=== PATIENT | female | born 1995 | race Caucasian/White ===

== ENCOUNTER 2022-05-19 19:02 | Emergency (ER) | payer MEDICAID, SELFPAY ==
[2022-05-19 19:34] VITALS: BP 135/83; PULSE 93; RESP 16; TEMP 36.9; O2SAT 98; BMI 39.1
--- NOTE | 2022-05-19 20:32 | ED.GENADULT ---
HPI - General Adult General Chief complaint: Lower Extremity Swelling Stated complaint: Swollen Ankle Time Seen by Provider: 05/19/22 20:23 History of Present Illness HPI narrative: Pt is a 27 year old woman who over the last few days has noticed mild swelling of the left ankle. Pt has had no injuries. No bruising or echymosis. No calf swelling. Pt is able to bear weight without any difficulty. No other symptoms. Pt states that she is currently not . She has not noted any aggravating or alleviating factors. No fever or chills. No other joint symptoms and she takes no medications. No pain noted. No previous treatment. Related Data Allergies Allergy/AdvReac Type Severity Reaction Status Date / Time amoxicillin Allergy Severe Swelling Verified 05/19/22 19:39 of Lip/Tongue/Throat Review of Systems Status of ROS: Reports: 10 or more systems reviewed and unremarkable except as noted in History and below [facility] Medical History No significant past medical history Surgical History No significant past surgical history Social History Smoking Status: Former smoker Do you use any of these nicotine containing products: None Second hand tobacco smoke exposure: No How often do you have a drink containing alcohol: never How often do you have six or more drinks on one occasion: Never AUDIT-C Alcohol total score: 0 Non-prescribed substance use: denies use Exam Narrative: Exam Narrative: EXAM GENERAL: Patient appears comfortable and well. EYES: No scleral icterus. ENT: Tympanic membranes and oropharynx normal. THYROID: no thyroid nodules or thyromegaly. LYMPH: No supraclavicular or cervical lymphadenopathy. SKIN: Visible skin seen during exam normal or with benign process only. EXT: Minor swelling noted over the lateral ankle without significant ecchymoses. This appears to be centered around the lateral malleolus. No other significant findings. HEART: Regular rate and rhythm with no murmurs, rubs, or gallops. LUNGS: Clear to auscultation bilaterally with no crackles or wheezes. ABD: Soft, non tender, non distended. PSYCH: Good eye contact, speech is not pressured. Const: Vital Signs, click to edit/add: Vital Signs - 24 hr 05/19/22 19:34 Temperature 98.5 F Pulse Rate [Right Pulse Oximeter] 93 Respiratory Rate 16 Blood Pressure [Ri ght Upper Arm] 135/83 Pulse Oximetry 98 Oxygen Delivery Me thod Room Air Course Course Hospital Course: Pt seen and examined Vital Signs Vital signs: Initial Vital Signs Temperature 98.5 F 05/19/22 19:34 Temperature Source Temporal Artery Scan 05/19/22 19:34 Pulse Rate 93 05/19/22 19:34 Pulse Rhythm 05/19/22 19:34 Respiratory Rate 16 05/19/22 19:34 Blood Pressure 135/83 05/19/22 19:34 Blood Pressure Mean 100 05/19/22 19:34 Blood Pressure Position Sitting 05/19/22 19:34 Pulse Oximetry 98 05/19/22 19:34 Oxygen Delivery Method 05/19/22 19:34 Vital Signs Temperature 98.5 F 05/19/22 19:34 Pulse Rate 93 05/19/22 19:34 Respiratory Rate 16 05/19/22 19:34 Blood Pressure 135/83 05/19/22 19:34 Pulse Oximetry 98 05/19/22 19:34 Oxygen Delivery Method 05/19/22 19:34 Temperature 98.5 F 05/19/22 19:34 Pulse Rate 93 05/19/22 19:34 Respiratory Rate 16 05/19/22 19:34 Blood Pressure 135/83 05/19/22 19:34 Pulse Oximetry 98 05/19/22 19:34 Oxygen Delivery Method 05/19/22 19:34 Medical Decision Making [facility] Narrative Medical decision making narrative: Pt presents with very mild swelling of the lateral left ankle without injury. No calf swelling or echymosis. Pt feels well otherwise and can bear weight without pain. Likely this is a mild sprain and will resolve with elevation, rest and anti-inflamitories with outpt follow up. Differential Diagnosis Differential Diagnosis: CHF, Edema, DVT, Ligamentous sprain/strain, cellulitis, fracture Discharge Plan Discharge Clinical Impression: Ankle sprain Patient Disposition: Home, Self-Care Condition: Stable Instructions: Ankle Sprain (ED) Additional Instructions: Elevation Compression Ice Follow up as needed Activity Level: No Restrictions Discharge Diet: Regular Stand Alone Forms: [facility] Info Instructions
== END 2022-05-19 21:04 | disposition home or self-care (01) ==
LOC: ED 20:48
PROVIDERS: Emergency Provider Internal Medicine
DX: S93.402A Sprain of unspecified ligament of left ankle, initial encounter (principal); X58.XXXA Exposure to other specified factors, initial encounter; Y93.9 Activity, unspecified; Y92.9 Unspecified place or not applicable; Y99.9 Unspecified external cause status
CPT/HCPCS: 99282; 99283

== ENCOUNTER 2022-08-11 16:48 | Outpatient (CLI) | payer MEDICAID, SELFPAY ==
--- NOTE | 2022-08-11 17:00 | CRLHL7_ITS ---
For Patients: As a result of the Century Cures Act, medical imaging exams and procedure reports are released immediately into your electronic medical record. You may view this report before your referring provider. If you have questions, please contact your health care provider. INDICATION: Dating, viability, 1st trimester bleeding. LMP 06/24/2022. COMPARISON: None. TECHNIQUE: 2D masters scale and color Doppler images were acquired of the pelvis using a transvaginal approach. FINDINGS: Sonographic images demonstrate a normal size and smooth outer contour of the uterus. The uterus is anteverted in position. The uterus measures 7.5 cm in length by 3.8 cm in AP diameter by 6.0 cm in transverse dimension. The myometrium has uniform echotexture. The endometrial lining measures 11 mm in composite thickness. No intrauterine gestational sac identified. There is a 1.7 x 1.1 x 1.5 cm ovoid hypoechoic lesion within the endometrial canal in the lower uterine segment with no significant internal vascularity. The right ovary measures 3.3 x 2.6 x 2.3 cm and the left ovary measures 3.7 x 1.7 x 1.9 cm. Blood flow is seen within both ovaries. There is a 1.8 cm corpus luteum in the left ovary. No suspicious adnexal mass. No free fluid in the cul-de-sac. IMPRESSION: 1. No intrauterine gestational sac identified. No suspicious adnexal mass. Correlate with serum beta HCG levels. 2. Indeterminate ovoid hypoechoic lesion within the endometrial canal in the lower uterine segment. Differential considerations include abnormal gestational sac, blood clot, endometrial polyp/neoplasm, or submucosal fibroid. Recommend follow-up ultrasound to ensure resolution. Dictated by Pily Briggs MD @ 08/12/2022 9:43:19 AM (Electronically Signed)
== END 2022-08-11 16:49 | disposition home or self-care (01) ==
LOC: US 16:49
PROVIDERS: Visit Provider Advanced Practice Midwife
DX: O20.9 Hemorrhage in early pregnancy, unspecified (principal)
CPT/HCPCS: 76817

== ENCOUNTER 2022-08-12 10:42 | Outpatient (CLI) | payer MEDICAID, SELFPAY ==
[2022-08-12 17:43] LABS: HCG Quantitative* 232.57 mIU/mL
== END 2022-08-12 10:43 | disposition home or self-care (01) ==
LOC: NFLDREF 10:45
PROVIDERS: Visit Provider Advanced Practice Midwife
DX: O20.9 Hemorrhage in early pregnancy, unspecified (principal)
CPT/HCPCS: 84702

== ENCOUNTER 2022-08-14 14:54 | Outpatient (CLI) | payer MEDICAID, SELFPAY ==
[2022-08-14 17:41] LABS: HCG Quantitative* 57.18 mIU/mL
== END 2022-08-14 14:55 | disposition home or self-care (01) ==
PROVIDERS: Advanced Practice Midwife; Visit Provider Advanced Practice Midwife
DX: O20.9 Hemorrhage in early pregnancy, unspecified (principal)
CPT/HCPCS: 84702

== ENCOUNTER 2024-01-04 17:11 | Outpatient (CLI) | payer MEDICAID, SELFPAY | END 2024-01-04 17:12 | disposition home or self-care (01) | PROVIDERS: Visit Provider Advanced Practice Midwife | DX: Z34.91 Encounter for supervision of normal pregnancy, unspecified, first trimester (principal); Z3A.08 8 weeks gestation of pregnancy | CPT/HCPCS: 76817; 82565; 82570; 84156; 84450; 84460; 86592; 86703; 86704; 86706; 86762; 86787; 86803; 86850; 86900; 86901; 87086; 87340 ==

== ENCOUNTER 2024-02-02 10:53 | Outpatient (CLI) | payer MEDICAID, SELFPAY | END 2024-02-02 10:54 | disposition home or self-care (01) | PROVIDERS: Visit Provider Advanced Practice Midwife | DX: Z34.91 Encounter for supervision of normal pregnancy, unspecified, first trimester (principal); Z3A.12 12 weeks gestation of pregnancy | CPT/HCPCS: 84450; 84460; 87491; 87591 ==

== ENCOUNTER 2024-03-01 14:27 | Outpatient (CLI) | payer MEDICAID, SELFPAY | END 2024-03-01 14:28 | disposition home or self-care (01) | PROVIDERS: Visit Provider Midwife | DX: Z34.92 Encounter for supervision of normal pregnancy, unspecified, second trimester (principal); Z3A.17 17 weeks gestation of pregnancy | CPT/HCPCS: 81511 ==

== ENCOUNTER 2024-03-29 09:12 | Outpatient (CLI) | payer MEDICAID, SELFPAY ==
--- NOTE | 2024-03-29 09:15 | CRLHL7_ITS ---
For Patients: As a result of the Century Cures Act, medical imaging exams and procedure reports are released immediately into your electronic medical record. You may view this report before your referring provider. If you have questions, please contact your health care provider. INDICATION: Evaluate anatomy. COMPARISON: 01/04/2024 TECHNIQUE: Real time masters scale imaging of the fetus was performed as well as color Doppler analysis of the umbilical vessels. FINDINGS: Sonographic imaging demonstrates a single living intrauterine gestation. Fetus demonstrates a regular cardiac rate of 141 beats per minute. Fetus has a vertex position. The placenta lies anteriorly without evidence of placenta previa. Amniotic fluid volume appears normal. Single deepest vertical pocket: 4.2 cm. The cervix is closed and measures 4.0 cm in length. The composite ultrasound gestational age is calculated at 20 weeks 6 days with an estimated sonographic due date of 08/10/2024. The estimated weight is 397 grams which lies at the 56th %. The following biometric measurements were obtained: Biparietal diameter: 4.8 cm/20 weeks 4 day 39th% Head circumference: 18.1 cm/20 weeks 4 days 27th% Abdominal circumference: 15.8 cm/20 weeks 6 days 45th% Femur length: 3.6 cm/21 weeks 3 days 61st% The HC/AC ratio measures: 1.15 range (1.06-1.25) On anatomic survey, there is a normal appearance of the cerebral ventricles, cavum septi pellucidi, cisterna magna and cerebellum. The nose and lips appear normal. Incomplete visualization of the profile. The cervical, thoracic and lumbar spine are well visualized and appear normal. There is a normal four-chamber heart view and the left and right ventricular outflow tracts appear normal. Incomplete visualization of the three-vessel view and three-vessel trachea view. The diaphragm and stomach appear normal. The kidneys and bladder also appear normal. There is a normal three-vessel cord and cord insertion site. The four extremities appear normal. IMPRESSION: Concordance of clinical and sonographic dating. Incomplete visualization of the profile, three-vessel view and three-vessel trachea view. Remainder of the anatomic survey normal. Short-term follow-up recommended. Dictated by Damion Gu MD @ 03/29/2024 12:27:30 PM (Electronically Signed)
== END 2024-03-29 09:13 | disposition home or self-care (01) ==
LOC: US 09:12
PROVIDERS: Visit Provider Midwife
DX: Z34.92 Encounter for supervision of normal pregnancy, unspecified, second trimester (principal); Z3A.20 20 weeks gestation of pregnancy
CPT/HCPCS: 76805

== ENCOUNTER 2024-04-25 08:15 | Outpatient (CLI) | payer MEDICAID, SELFPAY ==
--- NOTE | 2024-04-25 08:15 | CRLHL7_ITS ---
For Patients: As a result of the Century Cures Act, medical imaging exams and procedure reports are released immediately into your electronic medical record. You may view this report before your referring provider. If you have questions, please contact your health care provider. INDICATION: Follow-up anatomy COMPARISON: 03/29/2024 TECHNIQUE: Real-time masters-scale imaging of the pelvis was performed. FINDINGS: heart rate 161 beats per minute. Anterior placenta. 3VTV, 3VV, four-chamber heart, LVOT, RVOT and profile are normal. Amniotic fluid normal with single deepest pocket 3.9 cm. Breech position. IMPRESSION: Normal profile, three-vessel view and three-vessel trachea views. Dictated by Damion Gu MD @ 04/26/2024 9:33:54 AM (Electronically Signed)
== END 2024-04-25 08:16 | disposition home or self-care (01) ==
LOC: US 08:16
PROVIDERS: Visit Provider Obstetrics & Gynecology
DX: O99.212 Obesity complicating pregnancy, second trimester (principal); O34.219 Maternal care for unspecified type scar from previous cesarean delivery; Z3A.16 16 weeks gestation of pregnancy
CPT/HCPCS: 76816

== ENCOUNTER 2024-05-23 13:47 | Outpatient (CLI) | payer MEDICAID, SELFPAY | END 2024-05-23 13:48 | disposition home or self-care (01) | PROVIDERS: Visit Provider Obstetrics & Gynecology | DX: Z34.93 Encounter for supervision of normal pregnancy, unspecified, third trimester (principal); Z3A.28 28 weeks gestation of pregnancy | CPT/HCPCS: 86592 ==

== ENCOUNTER 2024-06-01 19:03 | Outpatient (CLI) | payer MEDICAID, SELFPAY ==
[2024-06-01 19:30] VITALS: BP 131/80; PULSE 88; TEMP 37
--- NOTE | 2024-06-01 23:54 | PC.OBNST ---
NST Note NST Note Start: 06/01/24 19:31 Freq: ONCE Status: Active Protocol: Document 06/01/24 23:06 ARTURO (Rec: 06/01/24 23:54 CJ Desktop) NST Note 3 Para (# of births) 1 EDC 08/10/24 Gestational Age In Weeks & Days 30 Weeks & 0 Days Patient Presented with Complaint(s) of Observation after an injury If Observation after an injury, describe pt fell forward at home after tripping Reactive Yes Appropriate for Gestational Age Yes RN Zach Valero RN Date 06/01/24 Reactive Yes Appropriate for Gestational Age Yes UNA Peñaloza RN Date 06/01/24 OB NST charge Yes Complete NST Note via Write Note Yes The provider's electronic signature indicates the NST is reactive/appropriate for gestational age. *Note to provider: If an addendum is required, open the patient's chart and click on the note under the Nurse/Allied Health tab.
== END 2024-06-01 23:06 | disposition home or self-care (01) ==
LOC: OB OUT 19:04 → OB 19:05
PROVIDERS: Visit Provider Obstetrics & Gynecology
DX: O26.893 Other specified pregnancy related conditions, third trimester (principal); Z3A.30 30 weeks gestation of pregnancy
CPT/HCPCS: 59025; G0463

== ENCOUNTER 2024-06-06 17:24 | Outpatient (CLI) | payer MEDICAID, SELFPAY ==
--- NOTE | 2024-06-06 17:30 | CRLHL7_ITS ---
For Patients: As a result of the Century Cures Act, medical imaging exams and procedure reports are released immediately into your electronic medical record. You may view this report before your referring provider. If you have questions, please contact your health care provider. INDICATION: Third trimester scan, evaluate growth. Maternal care for excessive growth. COMPARISON: 04/25/2024 TECHNIQUE: Real time masters scale imaging of the fetus was performed. FINDINGS: Sonographic imaging demonstrates a single living intrauterine gestation. Fetus demonstrates a regular cardiac rate of 154 beats per minute. Fetus has a vertex position. The placenta lies anterior. Amniotic fluid volume appears normal and there is a single deepest vertical pocket: 6.3 cm. The estimated weight is 2077gm which lies at the 96th %. On the prior OB ultrasound exam dated 03/29/2024 the estimated weight was at the 56th%. BPD 71st percentile. HC 93rd percentile. AC greater than 97th percentile. FL 73rd percentile. The HC/AC ratio measures 1.04 range (0.96-1.11). IMPRESSION: Sonographic gestational age 32 weeks 6 days and sonographic due date 07/26/2024. Sonographic age 15 days ahead of the clinical age. Estimated weight 96th percentile. Abdominal circumference greater than 97th percentile. Dictated by Damion Gu MD @ 06/07/2024 11:10:01 AM (Electronically Signed)
== END 2024-06-06 17:25 | disposition home or self-care (01) ==
LOC: US 17:25
PROVIDERS: Visit Provider Advanced Practice Midwife
DX: O36.63X0 Maternal care for excessive fetal growth, third trimester, not applicable or unspecified (principal); Z3A.32 32 weeks gestation of pregnancy
CPT/HCPCS: 76816

== ENCOUNTER 2024-07-06 14:19 | Outpatient (CLI) | payer MEDICAID, SELFPAY ==
[2024-07-07 11:03] LABS: Strep B DNA Probe POSITIVE (Negative)
[2024-07-07 11:10] LABS: Strep B Susceptibility Needed? Yes
== END 2024-07-06 14:20 | disposition home or self-care (01) ==
LOC: NFLDREF 16:16
PROVIDERS: Visit Provider Obstetrics & Gynecology
DX: Z34.83 Encounter for supervision of other normal pregnancy, third trimester (principal)
CPT/HCPCS: 82728; 87081; 87653

== ENCOUNTER 2024-07-14 14:15 | Outpatient (CLI) | payer MEDICAID, SELFPAY ==
[2024-07-15 13:40] LABS: Strep B DNA Probe Negative (Negative)
[2024-07-15 14:42] LABS: Strep B Susceptibility Needed? No
== END 2024-07-14 14:16 | disposition home or self-care (01) ==
LOC: NFLDREF 14:16
PROVIDERS: Visit Provider Obstetrics & Gynecology
DX: Z34.93 Encounter for supervision of normal pregnancy, unspecified, third trimester (principal); Z3A.36 36 weeks gestation of pregnancy
CPT/HCPCS: 87081; 87653

== ENCOUNTER 2024-07-26 07:03 | Inpatient (IN) | payer MEDICAID, SELFPAY ==
[2024-07-26] VITALS (29 sets, daily range): BP systolic 113–137; BP diastolic 74–90; PULSE 67–83; RESP 16–18; TEMP 36.4–36.8; O2SAT 93–98; BMI 42.3
[2024-07-26] MEDS: CLINDAMYCIN 900 MG/50 ML-D5W 900 MG/50 ML PIGGYBACK 100 MG IVPB (06:58)
[2024-07-26] MEDS: KETOROLAC 30 MG/ML inj IVP ×3 (08:53→21:12)
--- NOTE | 2024-07-26 09:43 | P.ANES_ITS ---
Anesthesia Charges Start Date/Time Anesthesia Start Date: 07/26/24 Anesthesia Start Time: 07:38 Stop Date/Time Anesthesia Stop Date: 07/26/24 Anesthesia Stop Time: 09:39 Coding CPT Codes CPT Codes: ANESTH CS DELIVERY - 69375 ([id number]) P3 - PATIENT W/SEVERE SYS DISEASE, QK - COAL WASHER 2-4 CNCRNT ANES PROC, QX - DANDY OPERATOR SVC W/ MD MED DIRECTION
--- NOTE | 2024-07-26 09:43 | W.ANESCHARGE ---
Anesthesia Charges Start Date/Time Anesthesia Start Date: 07/26/24 Anesthesia Start Time: 07:38 Stop Date/Time Anesthesia Stop Date: 07/26/24 Anesthesia Stop Time: 09:39 Coding CPT Codes CPT Codes: ANESTH CS DELIVERY - 27401 ([id number]) P3 - PATIENT W/SEVERE SYS DISEASE, QK - MARKETING ENGINEER 2-4 CNCRNT ANES PROC, QX - BONE GRINDER SVC W/ MD MED DIRECTION
--- NOTE | 2024-07-26 09:45 | W.PM.NB ---
Nerve Block Nerve Block Time Seen by Provider: 09:35 Type of block requested by surgeon for post-operative analgesia: TAP Side: bilateral Time out performed: Yes Verification of patient name: Yes Verification of date of : Yes Site marking: site marked Name of person performing procedure: Tyra Trinidad Continuous monitoring Was continuous monitoring of O2 sat, B/P, hydraulic press operator, recorded every 15 minutes?: Yes Procedure Checklist: sterile prep, needles and gloves Ultrasound guided. Images saved: Yes Medications given in 5ml increments after negative aspiration: Marcaine %: 0.25 mL: 30 Needle gauge: 20 and Exparel mL: 10 Needle gauge: 20 Patient tolerated procedure well: Yes Additional comments: Injected in 5ml increments after negative aspiration Block Charges Block Charge (with Pro Fee): TAP Bilateral Use of Ultrasound Machine for Block: Yes- US Guidance/pain block
--- NOTE | 2024-07-26 10:15 | PM.OBPRCCS ---
Procedure Pre-op diagnosis: Previous with T hysterotomy extension Thirty-seven weeks, 6 days gestation Post-op diagnosis: same Procedure Done: Global Will [facility] bill your pro fee for this procedure?: No Blood Loss Measurement Type: EBL (800 cc) Bakri Used: No IV fluids (mL): 1,500 Urine Output (mL): 250 Surgeon: Megan Kat MD Anesthesia Type: Spinal and TAP Block Findings: 1. Male infant, cephalic OA presentation, head not engaged in the pelvis, abundant clear amniotic fluid, Apgars of 7 and 8, weight 9 lb. 2. Normal appearance to bilateral tubes and ovaries. Minimal scarring of the bladder reflection to the anterior lower uterine segment. Considerable scarring of the fascial layer. Procedure Name: Repeat low-transverse delivery Procedure Description: Patient was taken to the operating room with IV running. She received gentamicin and clindamycin in preoperative prophylaxis. Spinal anesthesia was administered. Lewis catheter was inserted. She was prepped and draped in the usual sterile fashion. Anesthesia was tested and found to be adequate. A low-transverse skin incision was made with a scalpel and carried through to the underlying layer of fascia with the scalpel. The subcutaneous fat was dissected off the underlying fascia with Bovie. The fascia was nicked in the midline with a scalpel, and this incision was extended laterally with scissors. Fascia was sharply dissected off the underlying rectus superiorly and inferiorly. The rectus muscles were in the midline. Peritoneum was identified and entered bluntly. Fred O retractor was inserted and tightened down, providing excellent visualization of the lower uterine segment. The bladder reflection exhibited some adhesions along the lower uterine segment. A bladder flap was created with a combination of sharp and blunt dissection. Low-transverse uterine incision was made with a scalpel. Incision was widened bluntly. The 's head was grasped through the hysterotomy and delivered with the help of fundal pressure. This was made difficult by the unengaged head and the patient's habitus. The Fred-O was removed in the process. The remainder of the body delivered without incident. Cord was clamped and cut after 30 seconds. Infant was handed off to attending nurses. The placenta was delivered with gentle traction on the cord. The uterus was exteriorized and cleaned of all clots and debris with the dry lap pad. The hysterotomy was reapproximated with 0 Vicryl in a running, locked fashion. Second layer of the same suture was used in imbricating fashion to obtain hemostasis. Two additional [id number] sutures were required to obtain hemostasis. The adnexa were examined and noted to be normal in appearance. The cul-de-sac was cleansed with dampened laparotomy sponge, removing any further clots and debris. The uterus was returned to the abdomen. The hysterotomy was reexamined and found to be hemostatic. The cul-de-sac and gutters were cleansed with dampened laparotomy sponge, removing any further clots and debris. The peritoneum was reapproximated with 2 0 Vicryl in a running fashion. The rectus muscles were examined and found to be hemostatic. The fascia was reapproximated with 0 Vicryl in a running fashion. Subcutaneous fat was irrigated and Bovie used on oozing vessels. The subcutaneous fat was reapproximated with 2 0 plain gut suture in an interrupted fashion. The skin was closed with a subcuticular stitch of 4-0 Monocryl. Silver dressing was applied above this. Patient tolerated procedure well was taken to recovery area in stable condition. Complications: None Pathology: none sent Surgery Debrief Performed: Yes Surgery Debrief Comment: Postoperative debrief was verbalized with OR staff, including a verification of pathology specimens to be sent as described above.
--- NOTE | 2024-07-26 11:11 | P.ANES_ITS ---
Anesthesia Charges Start Date/Time Anesthesia Start Date: 07/26/24 Anesthesia Start Time: 07:38 Stop Date/Time Anesthesia Stop Date: 07/26/24 Anesthesia Stop Time: 09:39 Coding CPT Codes CPT Codes: ANESTH CS DELIVERY - 77939 ([id number]) QK - CLAY CARMAN 2-4 CNCRNT ANES PROC, QX - COMMISSARY STEWARD SVC W/ MD MED DIRECTION, P3 - PATIENT W/SEVERE SYS DISEASE
--- NOTE | 2024-07-26 11:11 | W.ANESCHARGE ---
Anesthesia Charges Start Date/Time Anesthesia Start Date: 07/26/24 Anesthesia Start Time: 07:38 Stop Date/Time Anesthesia Stop Date: 07/26/24 Anesthesia Stop Time: 09:39 Coding CPT Codes CPT Codes: ANESTH CS DELIVERY - 56469 ([id number]) QK - MECHANIC AND WELDER 2-4 CNCRNT ANES PROC, QX - MACHINE PROGRAMMER SVC W/ MD MED DIRECTION, P3 - PATIENT W/SEVERE SYS DISEASE
[2024-07-26] MEDS: LACTATED RINGERS 1000 ML 1,000 ML 1125 ML IV (13:30)
[2024-07-26] MEDS: DOCUSATE SODIUM 100 MG CAPSULE PO (16:21)
[2024-07-26] MEDS: FERROUS SULFATE 325 MG TABLET PO (16:21)
[2024-07-26 20:25] LABS: Hematocrit 29.7 % (33.0-51.0); Hemoglobin* 9.7 gm/dL (12.0-16.0); Mean Corpuscular HGB Conc 33 gm/dL (32-36); Mean Corpuscular Hemoglobin 27 pg (26-34); Mean Corpuscular Volume 82 fL (80-100); Platelet Count* 239 K/uL (140-440); Red Blood Count 3.63 m/uL (4.00-5.20); Slide Review Reflex No; White Blood Count* 11.42 K/uL (4.50-11.00)
[2024-07-26 20:46] LABS: Alanine Aminotransferase* 18 U/L (4-35); Aspartate Amino Transferase* 24 U/L (12-35); Blood Urea Nitrogen* 7 mg/dL (5-24); Creatinine* 0.4 mg/dL (0.5-1.5); Est. Creatinine Clearance* 185.05; Estimated Glomerular Filt Rate 136 ml/min
[2024-07-26] MEDS: ENOXAPARIN 40 MG/0.4 ML INJ SUBCUT (21:14)
[2024-07-27] VITALS (12 sets, daily range): BP systolic 120–138; BP diastolic 77–88; PULSE 75–91; RESP 16–18; TEMP 36.5–36.9; O2SAT 94–98
[2024-07-27] MEDS: ACETAMINOPHEN 500 MG TABLET 1000 MG PO ×4 (00:44→21:50)
[2024-07-27] MEDS: KETOROLAC 30 MG/ML inj IVP ×3 (03:18→15:02)
[2024-07-27 06:54] LABS: Hemoglobin* 10.7 gm/dL (12.0-16.0)
--- NOTE | 2024-07-27 09:53 | PM.OBPNVD1 ---
OB - PN:Subj Subjective Date Seen: 07/27/24 Patient comments OB post-: no complaints, pain well controlled and tolerating diet infant status: and doing well feeding status: exclusively Narrative: Sarah feels well.? Her pain is well controlled with current medications.? She has no new complaints.? Urinary output is adequate and she is voiding without difficulty.? Has a good appetite and is tolerating a general diet. She denies passing flatus at this time but does state that she is feeling movement in her bowels. Encouraged ambulation and if not gas by this afternoon to notify her nurse. Has scant amount of rubra lochia.? She is ambulating well.? OB - PN: Obj Exam Physical Exam: Vital signs: Temp Pulse Resp BP Pulse Ox O2 Del Method 98.4 F 75 18 122/77 95 Room Air 07/27/24 06:17 07/27/24 06:17 07/27/24 07:26 07/27/24 06:17 07/27/24 06:17 07/27/24 06:17 Narrative: GENERAL APPEARANCE:? normal affect, alert, no distress? MOOD:? appropriate? CHEST:? clear to auscultation and percussion? HEART:? regular rate and rhythm? ABDOMEN:? soft, non-tender the uterine fundus is U/2 and is appropriate for the stage of recovery. Incision dressing is clean, dry and intact.? EXTREMITIES:? normal and no edema? OB - PN: Obj Data Labs Labs: Laboratory Results - last 24 hr 07/26/24 07/27/24 20:21 06:40 WBC 11.42 H RBC 3.63 L Hgb 9.7 L 10.7 L Hct 29.7 L MCV 82 MCH 27 MCHC 33 Plt Count 239 BUN 7 Creatinine 0.4 L Estimated Creat Clear 185.05 Estimated GFR 136 AST 24 ALT 18 OB - PN: A/P Delivery Assessment and Plan (1) care following delivery: Status: Acute (2) Lactating mother: Status: Acute Plan day: 1 Plan: routine care Comments: Anticipate discharge home tomorrow or the following day per patient preference.
[2024-07-27] MEDS: ENOXAPARIN 40 MG/0.4 ML INJ SUBCUT (21:51)
[2024-07-27] MEDS: IBUPROFEN 600 MG TABLET PO (21:51)
[2024-07-28 02:46] VITALS: BP 131/81; PULSE 84; RESP 16; TEMP 36.6
[2024-07-28] MEDS: IBUPROFEN 600 MG TABLET PO ×3 (06:02→18:28)
[2024-07-28] MEDS: ACETAMINOPHEN 500 MG TABLET 1000 MG PO ×3 (06:02→18:28)
--- NOTE | 2024-07-28 07:44 | P.DS_ITS ---
DS: Providers Provider Date Seen: 07/28/24 Date of admission: 07/26/24 07:03 Primary care physician: Not a Local Provider Admitting Clinician: Megan Kat MD Attending Physician on discharge: Jessica Hernandez CNM DS: Diagnosis Discharge Diagnosis (1) care following delivery: Status: Acute (2) Lactating mother: Status: Acute (3) Anemia affecting : Status: Acute Exam Narrative: Exam Narrative: GENERAL APPEARANCE:? normal affect, alert, no distress MOOD:? appropriate CHEST:? clear to auscultation HEART:? regular rate and rhythm ABDOMEN:? soft, non-tender the uterine fundus is At Umbilicus, Midline and is appropriate for the stage of recovery. EXTREMITIES:? normal and no edema INCISION: Healing well, no surrounding erythema, abnormal induration or discharge Const: Vital Signs, click to edit/add: Vital Signs - 24 hr 07/27/24 10:06 07/27/24 17:50 07/27/24 21:48 Temperature 98 F 98.1 F 98.3 F Pulse Rate [Bilate ral Pulse Oximeter ] 82 82 91 Respiratory Rate 18 17 16 Blood Pressure [Le ft Arm] 120/79 138/88 138/83 Pulse Oximetry 97 98 Oxygen Delivery Me thod Room Air Room Air Room Air 07/28/24 02:46 Temperature 97.8 F Pulse Rate [Bilate ral Pulse Oximeter ] 84 Respiratory Rate 16 Blood Pressure [Le ft Arm] 131/81 Pulse Oximetry Oxygen Delivery Me thod Room Air Documenting provider has reviewed patient's vital signs: yes OB - DS: Summary Hospital Course Hospital Course: Sarah is a 29 y.o. G 3 P 2 who was admitted to [facility] for repeat c/s. ?She had a section that was uncomplicated. The patient feels well. ?The pain is well controlled with current medications. ?She has no new complaints. ?She is breast feeding and reports things are going well. the patient has done well.? Vitals have been stable.? She has remained afebrile.? Has a good appetite, is tolerating a general diet. ?She is voiding without difficulty.? She is passing gas and has not had a bowel movement.? She is ambulating and denies any dizziness.? Has small amount of rubra lochia. Problems: GHTN Discharge home with baby.? Follow up in 2 weeks and 6 weeks.? , may see if needed? Hgb 10.7. Iron supplement ordered orally every other day? GHTN diagnosed by elevated BP greater than 4 hours apart, BP remains higher normotensive Labs WNL Discharge home with BP cuff if does not already have one? Follow up in 5 days? Call for signs/symptoms of preeclampsia? For pain control of perineum, breast and pelvic pain, take 600 mg Ibuprofen every 6 hours as needed by mouth or 1000 mg acetaminophen (Tylenol) every 6 hours by mouth as needed. You can alternate these so you are taking something every 3 hours as needed. A heating pad can also be used for your abdomen or breasts. You may also take docusate sodium up to twice daily to soften your stools and help to prevent constipation. You may wean off of it when your stools return to normal.? Peripartum Data delivery method: Repeat Section Procedures: Procedures Operation Date: 07/26/24 07:15 Actual Procedure Side Surgeon p Repeat Section Megan Kat MD complications: none Infant Gender: Male Discharge Plan: Home Status at Discharge Functional status at discharge: independent ambulation Overall status at discharge: patient is progressing back to baseline Time Spent with Patient Time attestation: Total time spent providing and/or coordinating discharge services: Time spent: Less than 30 minutes Discharge Plan Discharge Disposition: Home, Self-Care Date of Admission: 07/26/24 07:03 Attending Provider on Discharge: Jessica Hernandez Primary Care Provider: Provider,Not a Local Condition: Stable Anticipated Discharge Date/Time: 07/28/24 12:00 Discharge Medications: New ibuprofen 600 mg Tablet 600 mg PO Q6H PRN (Reason: Pain) Qty: 60 0RF oxycodone 5 mg Tablet 5 - 10 mg PO Q4H PRN (Reason: Pain) Qty: 15 0RF docusate sodium [Colace] 100 mg capsule 100 mg PO DAILY Qty: 90 0RF acetaminophen 500 mg Tablet 1,000 mg PO Q6H PRN (Reason: pain/fever) Qty: 0 0RF Continued loratadine 10 mg tablet 10 mg PO DAILY calcium carbonate [Tums] 200 mg calcium (500 mg) tablet,chewable 200 mg PO BID [id number] 3-fat com #1 27-1-300 mg capsule 200 cap PO DAILY ferrous sulfate 325 mg (65 mg iron) tablet 325 mg PO Q OTHER DAY Qty: 30 0RF Discontinued aspirin [Adult Low Dose Aspirin] 81 mg tablet,delayed release (DR/EC) 81 mg PO QDAY Discharge Orders: Discharge Order (Routine); Ordered 07/28/24 Ordered By: Jessica Hernandez Patient Education: OB Over the Counter Medication Information, OB /Breast Feeding Additional Instructions: Discharge instructions were reviewed with the patient including signs and symptoms of infection and home going medications Lifting Restrictions: 20 pounds for 6 weeks No not submerge incision under water X 2 weeks? Nothing vaginally for 6 weeks: no tampons or intercourse Do not drive while taking narcotic pain medication(s) Off Work or School for 8 weeks [facility] BP check?5 days, can do with incision check * Call with BP greater than or equal to 160/110 * Severe headache that doesn't improve after taking medications * Changes in vision, including temporary loss of vision, blurred vision, and/or light sensitivity * Upper abdominal pain (usually under ribs on the right side) 1-week visit: incision check with dressing removal, discuss infant feeding concerns, review control options and screen for anxiety/depression. 6-week visit for an annual exam. consultation services are available to all mothers and babies for the first year after delivery.? To make an appointment, please call [phone]. Activity Level: Activity as Tolerated Discharge Diet: Regular Follow Up Appointments: [facility] [Provider Group] Forms: [employer] Info Instructions
[2024-07-28 08:02] VITALS: BP 132/85; PULSE 81; RESP 16; TEMP 36.7; O2SAT 96
[2024-07-28] MEDS: FERROUS SULFATE 325 MG TABLET PO (12:09)
[2024-07-28] MEDS: DOCUSATE SODIUM 100 MG CAPSULE PO (12:48)
[2024-07-28 14:20] VITALS: BP 131/85; PULSE 82; RESP 16; TEMP 36.7; O2SAT 95
== END 2024-07-28 18:33 | disposition home or self-care (01) | DRG 788 ==
PROVIDERS: Obstetrics & Gynecology; Admitting Provider Obstetrics & Gynecology; Visit Provider Obstetrics & Gynecology
PROC: 10D00Z1 Extraction of Products of Conception, Low, Open Approach (ICD-10-PCS; CPT 59514; principal; 2024-07-26 07:15)
DX: O34.211 Maternal care for low transverse scar from previous cesarean delivery (principal); O13.5 Gestational [pregnancy-induced] hypertension without significant proteinuria, complicating the puerperium; O99.824 Streptococcus B carrier state complicating childbirth; G89.18 Other acute postprocedural pain; O99.02 Anemia complicating childbirth; D64.9 Anemia, unspecified; Z37.0 Single live birth; Z3A.37 37 weeks gestation of pregnancy; O99.214 Obesity complicating childbirth; E66.9 Obesity, unspecified
CPT/HCPCS: 01961; 36415; 64488; 76942; 82565; 84450; 84460; 84520; 85018; 85027; 86592; 86850; 86900; 86901; A4314; A9270; J0665; J0666; J0736; J1100; J1650; J1885; J2274; J2371; J2405; J2590; J7120

== ENCOUNTER 2024-07-31 13:53 | Outpatient (CLI) | payer MEDICAID, SELFPAY | END 2024-07-31 13:54 | disposition home or self-care (01) | PROVIDERS: Visit Provider Obstetrics & Gynecology | DX: O13.9 Gestational [pregnancy-induced] hypertension without significant proteinuria, unspecified trimester (principal) | CPT/HCPCS: 82565; 84450; 84460; 84520 ==